=== PATIENT | female | born 1955 | race Caucasian/White ===

== ENCOUNTER 2017-07-05 15:25 | Emergency (ER) | payer OTHER, MEDICAID ==
[2017-07-05] MEDS: HYDROCODONE/APAP (5/325) TAB PO (16:22)
== END 2017-07-05 17:30 | disposition home or self-care (01) ==
LOC: FTE 15:25
DX: S13.9XXA Sprain of joints and ligaments of unspecified parts of neck, initial encounter (principal); S52.502A Unspecified fracture of the lower end of left radius, initial encounter for closed fracture; S33.9XXA Sprain of unspecified parts of lumbar spine and pelvis, initial encounter; I10 Essential (primary) hypertension; W01.0XXA Fall on same level from slipping, tripping and stumbling without subsequent striking against object, initial encounter; Y92.9 Unspecified place or not applicable
CPT/HCPCS: 29125; 72040; 72100; 73110-LT; 99284-25